=== PATIENT | female | born 1990 | race Caucasian/White ===

== ENCOUNTER → 2018-08-25 | Outpatient (REF) | payer OTHER ==
[2018-08-25 15:13] LABS: HEMATOCRIT 40.7 % (36.0-47.0); HEMOGLOBIN 13.9 g/dl (12.0-15.5); MEAN CORPUSCULAR HEMOGLOBIN 31.7 pg (27.0-33.0); MEAN CORPUSCULAR HGB CONC 34.2 g/dl (32.0-36.5); MEAN CORPUSCULAR VOLUME 92.9 fl (80.0-96.0); PLATELET COUNT, AUTOMATED 248 10^3/uL (150-450); RED BLOOD COUNT 4.38 10^6/uL (4.00-5.40)
[2018-08-26 16:00] LABS: HIV 1&2 SCREEN CENTAUR NEGATIVE (NEGATIVE); RUBELLA IgG QUALITATIVE IMMUNE (IMMUNE)
== END ==
LOC: M LAB REF 14:41
PROVIDERS: ATTEND Obstetrics & Gynecology
DX: Z34.82 Encounter for supervision of other normal pregnancy, second trimester (principal)

== ENCOUNTER → 2018-09-10 | Outpatient (REF) | payer OTHER | LOC: M LAB REF 13:03 | PROVIDERS: ATTEND Obstetrics & Gynecology | DX: Z34.82 Encounter for supervision of other normal pregnancy, second trimester (principal) ==

== ENCOUNTER → 2018-11-12 | Outpatient (CLI) | payer BC, OTHER ==
[2018-11-12 09:57] LABS: HEMATOCRIT 37.5 % (36.0-47.0); HEMOGLOBIN 12.5 g/dl (12.0-15.5); MEAN CORPUSCULAR HEMOGLOBIN 32.1 pg (27.0-33.0); MEAN CORPUSCULAR HGB CONC 33.3 g/dl (32.0-36.5); MEAN CORPUSCULAR VOLUME 96.2 fl (80.0-96.0); PLATELET COUNT, AUTOMATED 199 10^3/uL (150-450); WHITE BLOOD COUNT 10.4 10^3/uL (4.0-10.0)
== END ==
LOC: M LAB 08:18
PROVIDERS: ATTEND Obstetrics & Gynecology
DX: Z34.83 Encounter for supervision of other normal pregnancy, third trimester (principal); Z3A.00 Weeks of gestation of pregnancy not specified

== ENCOUNTER → 2019-01-22 | Outpatient (REF) | payer OTHER | LOC: M LAB REF 12:39 | PROVIDERS: ATTEND Obstetrics & Gynecology | DX: Z34.83 Encounter for supervision of other normal pregnancy, third trimester (principal) ==

== ENCOUNTER 2019-02-13 02:52 | Inpatient (IN) | payer BC, OTHER ==
[2019-02-13] VITALS (35 sets, daily range): BP systolic 91–165; BP diastolic 51–87
[~2019-02-13] VITALS: Ht 172.7 cm; Wt 83.0 kg
[2019-02-13] MEDS ORDERED: LR 1,000 ML IV SCH (03:21)
[2019-02-13] MEDS ORDERED: LACTATED RINGER'S 1000 ML IV STA (03:21)
[2019-02-13] MEDS ORDERED: PRENTAB9 PO (04:00)
[2019-02-13] MEDS ORDERED: FENTANYL 2MCG/ML ROPIVACAINE 0.2% IN 0.9% NACL 100ML IVBAG As Ordered ONE (04:12)
[2019-02-13 04:40] LABS: HEMATOCRIT 39.5 % (36.0-47.0); HEMOGLOBIN 13.2 g/dl (12.0-15.5); MEAN CORPUSCULAR HGB CONC 33.4 g/dl (32.0-36.5); MEAN CORPUSCULAR VOLUME 95.9 fl (80.0-96.0); PLATELET COUNT, AUTOMATED 167 10^3/uL (150-450); RED BLOOD COUNT 4.12 10^6/uL (4.00-5.40)
[2019-02-13] MEDS ORDERED: EPIDURAL COMMENT XX SCH (05:30)
[2019-02-13] MEDS ORDERED: diphenhydrAMINE INJ 50MG/ML VIAL (J1200) IV PRN (05:30)
[2019-02-13] MEDS ORDERED: REFRIGERATOR IV KEYS XX PRN (05:30)
[2019-02-13] MEDS ORDERED: FENTANYL/ROPIVACAINE/NACL BAG 100 ML EPIDURAL SCH (05:30)
[2019-02-13] MEDS ORDERED: NALOXONE INJ 0.4 MG/1 ML VIAL (J2310) IV PRN (05:30)
[2019-02-13] MEDS ORDERED: ONDANSETRON 4MG/2ML VIAL (J2405) IV PRN ×2 (05:30→14:45)
[2019-02-13] MEDS ORDERED: EPIDURAL/PCA KEYS XX PRN (05:30)
[2019-02-13] MEDS ORDERED: ePHEDrine SULFATE 25 MG/5 ML(5MG/ML) SYRINGE IV PRN (05:30)
[2019-02-13] MEDS ORDERED: LACTATED RINGER'S 1000 ML IV PRN (05:30)
[2019-02-13] MEDS ORDERED: OXYTOCIN DRIP 30 UNITS in APPROPRIATE DILUENT 1 EA IV SCH ×2 (06:00→14:45)
[2019-02-13 14:22] LABS: CORD GAS ABE V -10.8; CORD GAS HCO3 V 18.1 MEQ/L; CORD GAS O2 SAT V 48.9 %; CORD GAS PH V 7.167 UNITS; CORD GAS PO2 V 26.8 mmHg; CORD GAS SBC V 15.1 MEQ/L; CORD GAS TCO2 V 19.6 MEQ/L
[2019-02-13 14:25] LABS: CORD GAS ABE A -13.2; CORD GAS O2 SAT A 63.7 %; CORD GAS PH A 7.132 UNITS; CORD GAS PO2 A 35.6 mmHg; CORD GAS SBC A 13.9 MEQ/L; CORD GAS TCO2 A 17.5 MEQ/L
[2019-02-13] MEDS ORDERED: ceFAZolin 2 GM/D5W 50 ML IV BAG (J0690 PER 500MG) As Ordered ONE (14:32)
[2019-02-13] MEDS ORDERED: ANUSOL HC CREAM 30GM TOP PRN (14:45)
[2019-02-13] MEDS ORDERED: MEASLES,MUMPS,RUBELLA VACCINE INJ (MMR-II) (90707) SC SCH (14:45)
[2019-02-13] MEDS ORDERED: METHYLERGONOVINE MALEATE 0.2 MG/ML VIAL (J2210) IM ONE (14:45)
[2019-02-13] MEDS ORDERED: IBUPROFEN 600 MG TAB PO PRN (14:45)
[2019-02-13] MEDS ORDERED: RHOGAM 300 MCG (1500 IU) INJ (J2790) IM SCH (14:45)
[2019-02-13] MEDS ORDERED: ACETAMINOPHEN 500 MG TAB PO PRN (14:45)
[2019-02-13] MEDS ORDERED: METHYLERGONOVINE MALEATE 0.2 MG TAB PO PRN (14:45)
[2019-02-13] MEDS ORDERED: ACETAMINOPHEN TAB 650MG DOSE (2X325MG) PO PRN (14:45)
[2019-02-13] MEDS ORDERED: DIBUCAINE 1% OINTMENT 30GM TOP PRN (14:45)
[2019-02-13] MEDS ORDERED: IBUPROFEN 800 MG TAB PO PRN (14:45)
[2019-02-13] MEDS ORDERED: IBUP80TA PO (14:58)
[2019-02-13] MEDS ORDERED: OXYTOCIN INJ 10 UNITS/ML VIAL (J2590) IM ONE (15:00)
--- NOTE | 2019-02-13 17:56 | HPE ---
DATE OF ADMISSION: 02/13/2019 Gertrudis is a 28-year-old female, 2, para 0-0-1-0 with an estimated date of confinement (EDC) of 02/17/2019, estimated gestational age (EGA) 39-3/7 weeks gestation, who presented to labor and delivery with complaints of contractions every 3-4 minutes. Upon evaluation she was found to be in labor. At this point a decision was made for admission. Her record reviewed, which was essentially unremarkable. Her current is through in-vitro fertilization (IVF). LABORATORY: Blood type is O positive, rubella immune, hepatitis negative, HIV negative, GC and chlamydia negative. One-hour sugar testing was within normal limits. Her GBS is negative. PAST MEDICAL HISTORY: Denies. PAST SURGICAL HISTORY: Denies. SOCIAL HISTORY: She is . Denies any alcohol, drugs, or cigarette smoking. REVIEW OF SYSTEMS: Unremarkable. MEDICATIONS: vitamins ALLERGIES: No known drug allergies. PHYSICAL EXAMINATION: HEENT: Grossly within normal limits. Abdomen: Soft, nontender, nondistended. Extremities: No clubbing, cyanosis or edema. Vaginal exam: 4-5 cm dilated, cervix 100% effaced, fetus at -1 station in vertex position. Tracing reviewed. Category 1 tracing. ASSESSMENT: Intrauterine at 39-3/7 weeks with gestation, in labor. PLAN: Admit to labor and delivery. Routine labs sent. Pain management discussed. The patient up for an epidural. Will continue to monitor. Anticipate delivery.
--- NOTE | 2019-02-13 18:42 | DN ---
DATE: 02/13/2019 Delivery Note The patient was fully dilated and pushing. Pushed for approximately 3 hours and 7 minutes. Delivered a live male infant in occiput posterior position. 3/4/7. Placenta delivered spontaneously intact. Three-vessel cord. The intravenous (IV) was infiltrated right after delivery. Intramuscular (IM) Pitocin as well as Methergine were given to control bleeding. First-degree midline perineal laceration was noted ,which was repaired using 2-0 chromic. Estimated blood loss 450 mL. The laceration was repaired using 2-0 chromic. The baby was then taken to the intensive care unit (NICU) for further monitoring. Mother in stable condition. MTDD
[2019-02-13] MEDS: DOCUSATE SODIUM 100 MG CAP PO SCH (20:33)
[2019-02-14 06:01] VITALS: BP 124/75
[2019-02-14 08:09] LABS: HEMATOCRIT 34.5 % (36.0-47.0); HEMOGLOBIN 11.5 g/dl (12.0-15.5); MEAN CORPUSCULAR HEMOGLOBIN 31.2 pg (27.0-33.0); MEAN CORPUSCULAR HGB CONC 33.3 g/dl (32.0-36.5); MEAN CORPUSCULAR VOLUME 93.5 fl (80.0-96.0); PLATELET COUNT, AUTOMATED 155 10^3/uL (150-450); RED BLOOD COUNT 3.69 10^6/uL (4.00-5.40); WHITE BLOOD COUNT 16.4 10^3/uL (4.0-10.0)
[2019-02-14] MEDS: DOCUSATE SODIUM 100 MG CAP PO SCH (08:32)
[2019-02-14] MEDS ORDERED: PRENATAL VITAMINS CHEWABLE TABLET PO SCH (09:00)
== END 2019-02-14 14:45 | disposition home or self-care (01) | DRG 560 ==
LOC: M LDO 02:52 → M LDI 03:25 → M OBS 17:39
PROVIDERS: ADMIT Obstetrics & Gynecology; ATTEND Obstetrics & Gynecology
PROC: 10E0XZZ Delivery of Products of Conception, External Approach (ICD-10-PCS; principal; 2019-02-13)
PROC: 0HQ9XZZ Repair Perineum Skin, External Approach (ICD-10-PCS; 2019-02-13)
DX: O70.0 First degree perineal laceration during delivery (principal); Z37.0 Single live birth; Z3A.39 39 weeks gestation of pregnancy